=== PATIENT | male | born 1990 | race Caucasian/White ===

== ENCOUNTER 2018-01-11 18:22 | Emergency (ER) | payer MEDICAID, OTHER ==
[~2018-01-11] VITALS: Ht 185.4 cm; Wt 70.0 kg
[~2018-01-11 18:22] MED LIST: IBUP-238 PO; Z.0.NO CURRENT MEDS
[2018-01-11 18:24] VITALS: BP 127/59; PULSE 58; RESP 16; TEMP 98.4; O2SAT 98
[2018-01-11] MEDS ORDERED: DIVA250ER PO (19:11)
[2018-01-11] MEDS ORDERED: BUSP5TAB PO (19:11)
--- NOTE | 2018-01-11 19:47 | RADRPT ---
EXAM DATE: 01/11/2018 7:44 PM EDT AGE/SEX: 27 years / Male INDICATIONS: USP. Trauma. CLINICAL DATA: This is the patient's initial encounter. Patient reports that signs and symptoms have been present for 2 days and indicates a pain score of 4/10. MEDICAL/SURGICAL HISTORY: None. None. COMPARISON: No prior exams available for comparison. FINDINGS: Bony structures are intact and in normal alignment. Joints are intact without dislocation or signifi cant arthropathy. Osseous density is normal. Soft tissues are unremarkable. No radiopaque foreign bodies seen. CONCLUSION: Negative right knee series. Electronically signed by: Colin Ardon MD 01/11/2018 7:45 PM EDT
[2018-01-11] MEDS ORDERED: NAPROXEN 500 MG TAB PO ONE (20:00)
[2018-01-11] MEDS ORDERED: DICL75TA PO (20:03)
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
== END 2018-01-11 20:24 | disposition home or self-care (01) ==
LOC: NEPD 18:22
DX: S80.01XA Contusion of right knee, initial encounter (principal); S83.91XA Sprain of unspecified site of right knee, initial encounter; V19.9XXA Pedal cyclist (driver) (passenger) injured in unspecified traffic accident, initial encounter; Y93.55 Activity, bike riding
CPT/HCPCS: 73564; 99283; E0113